=== PATIENT | male | born 1940 | race Caucasian/White ===

== ENCOUNTER → 2020-09-16 | Outpatient (CLI) | payer MEDICARE, OTHER ==
--- NOTE | 2020-09-16 15:42 | RAD ---
XR KNEE_RT 1-2 VIEWS DATE: 09/16/2020 11:52 AM INDICATION: RIGHT KNEE PAIN X 2 WEEKS / Spl. Instructions: / History: COMPARISON: None. FINDINGS: Bones: There is no evidence of acute fracture or dislocation. Joints: Moderate medial compartment degenerative changes, mild lateral and patellofemoral compartmen t. Chondrocalcinosis of the menisci. There is no joint effusion. Miscellaneous: None. IMPRESSION: 1. No acute osseous abnormality. 2. Tricompartmental degenerative changes, worst and moderate in the medial compartment. 3. 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 Electronically signed by: Yasir Cook MD (09/16/2020 3:40 PM) [id number]
== END ==
LOC: PMG 11:15
PROVIDERS: ATTEND Family Medicine
DX: M17.11 Unilateral primary osteoarthritis, right knee (principal); M11.261 Other chondrocalcinosis, right knee
CPT/HCPCS: 73560

== ENCOUNTER → 2020-12-18 | Outpatient (CLI) | payer OTHER ==
--- NOTE | 2020-12-18 08:31 | RAD ---
EXAM: Left lower extremity venous Doppler sonogram. HISTORY: Pain and swelling. TECHNIQUE: Prieto scale and color Doppler sonographic evaluation of the left lower extremity veins with spectral waveform analysis was performed. FINDINGS: There is normal color flow, normal compressibility and there are normal spectral waveforms in the common femoral, superficial femoral, popliteal, posterior tibial and greater saphenous veins. IMPRESSION: No Doppler evidence of lower extremity deep venous thrombosis. Electronically signed by: Jess Wahl MD (12/18/2020 8:28 AM) [id number]
== END ==
LOC: US 07:59
PROVIDERS: ATTEND Nurse Practitioner Family
DX: M79.662 Pain in left lower leg (principal)
CPT/HCPCS: 93971